=== PATIENT | male | born 1950 | race Caucasian/White ===

== ENCOUNTER 2023-10-23 00:45 | Day surgery (SDC) | payer MEDICARE, SELFPAY ==
[2023-10-05 13:22] VITALS: BMI 27.4
[2023-10-23 07:12] VITALS: BP 127/67; PULSE 70; RESP 18; TEMP 36.1; O2SAT 100; BMI 27.1
[2023-10-23] MEDS: LACTATED RINGERS 1,000 ML 150 ML IV CONT (07:23)
--- NOTE | 2023-10-23 08:01 | WPDANESEPPF ---
Anes - Initial Pre Proc Eval Procedure: Operation Date: 10/23/23 08:30 Proposed Procedures p Colonoscopy - Meño Palafox MD Date/Time: 10/23/23 08:01 Surgeon: Meño Palafox MD Pre Op Diagnosis: history of cancer Patient Data Age: 73 Gender: M Height: 1.73 m Weight: 80.9 kg Last Vital Signs Temp 97.0 F L 10/23/23 07:12 Pulse 70 10/23/23 07:12 Resp 18 10/23/23 07:12 BP 127/67 10/23/23 07:12 Pulse Ox 100 10/23/23 07:12 O2 Del Method Room Air 10/23/23 07:12 Allergies Allergy/AdvReac Type Severity Reaction Status Date / Time No Known Allergies Allergy Verified 10/23/23 07:11 Home Medications Medication Instructions Recorded Confirmed Type rosuvastatin 20 mg tablet 20 mg PO DAILY 08/02/23 10/23/23 History krill kqt-ridzm-1-dha-epa 150 1 cap PO DAILY 10/05/23 10/23/23 History mg-450 mg capsule,delayed release multivitamin 1 tablet PO DAILY 10/05/23 10/23/23 History vitamins A,C,T-saly-ojyete 2,148 1 tablet PO BID 10/05/23 10/23/23 History mcg-113 mg-45 mg-17.4 mg tablet (PreserVision AREDS) Patient hx anesthesia problems: none Family hx anesthesia problems: none Results Review: All pre-operative results and documents have been reviewed as part of the pre-operative evaluation. [facility] Surgical History Surgical History H/O rotator cuff surgery Status post bilateral hernia repair Social History Social History Smoking status: Never smoker Living arrangements: with family Spiritual care concerns: No Anes - Eval Final PreProcedure Day of Procedure 10/23/23 08:01 Patient weight: normal Heart: regular rate and rhythm Lungs: clear to auscultation Airway: Mallampati scale class 1 Neurological: alert and oriented Last oral intake: >/= 8 hours ASA classification: II Emergent: no Anesthetic plan: proceed Anesthesia type and monitoring: general GIVS and standard monitoring Results Review: All pre-operative results and documents have been reviewed as part of the pre-operative evaluation. Hyperlipidemia. Active w workouts, some cardio, no cp or sob. Informed Consent: The patient's anesthetic plan and its attendant risks and benefits were discussed with the patient/family/POA. Questions were solicited and answers provided to the satisfaction of the patient/family/POA.
--- NOTE | 2023-10-23 08:06 | PM.HPGS ---
History of Present Illness History of Present Illness Consent: Risks, benefits, and alternatives have been discussed and questions answered. Patient agrees to proceed with procedure. Chief complaint: history of cancer Narrative: Leonardo Avitia is a 73 year old male here for colonoscopy, last one 2016, mother had colon cancer Review of Systems Review of Systems: All systems reviewed & are unremarkable except as noted in HPI and below PMFSH Surgical History Surgical History H/O rotator cuff surgery Status post bilateral hernia repair Social History Social History Smoking status: Never smoker Living arrangements: with family Spiritual care concerns: No Meds Home Medications and Allergies Home Medications Medication Instructions Recorded Confirmed Type rosuvastatin 20 mg tablet 20 mg PO DAILY 08/02/23 10/23/23 History krill acw-vsxuf-7-dha-epa 150 1 cap PO DAILY 10/05/23 10/23/23 History mg-450 mg capsule,delayed release multivitamin 1 tablet PO DAILY 10/05/23 10/23/23 History vitamins A,C,V-yyju-bpwrqs 2,148 1 tablet PO BID 10/05/23 10/23/23 History mcg-113 mg-45 mg-17.4 mg tablet (PreserVision AREDS) Allergies Allergy/AdvReac Type Severity Reaction Status Date / Time No Known Allergies Allergy Verified 10/23/23 07:11 Vital Signs Vital Signs - 24 hr 10/23/23 07:12 Temperature 97.0 F L Pulse Rate 70 Respiratory Rate 18 Blood Pressure 127/67 Pulse Oximetry 100 Oxygen Delivery Room Air Exam Const: General: comfortable and no acute distress HENMT: Face/Nose/Sinus: Normal nares present Eyes: General: appearance normal, both eyes and all related structures Neck: Neck: no JVD Resp: Auscultation: clear to auscultation bilaterally Cardio: Rate: regular rate Rhythm: regular rhythm GI: Inspection: non-distended GI Palp: Yes Soft to palpation Skin: General skin exam: normal color Neuro: General: gait normal Speech: normal speech Extrem: General: normal to inspection Psych: Mental Status: mental status grossly normal Assessment and Plan Assessment and plan (1) Family hx of colon cancer: Code(s): Z80.0 - Family history of malignant neoplasm of digestive organs Status: Acute Assessment and Plan: colonoscopy
[2023-10-23 08:21] VITALS: BP 92/54; PULSE 58; RESP 21; O2SAT 97
[2023-10-23 08:31] VITALS: BP 90/66; PULSE 68; RESP 18; O2SAT 100
[2023-10-23 08:41] VITALS: BP 103/67; PULSE 70; RESP 18; O2SAT 100
== END 2023-10-23 08:51 | disposition home or self-care (01) ==
PROVIDERS: PCP Internal Medicine; Referring Provider Nurse Practitioner; Visit Provider Internal Medicine Gastroenterology
PROC: 0DJD8ZZ Inspection of Lower Intestinal Tract, Via Natural or Artificial Opening Endoscopic (ICD-10-PCS; CPT 45378; principal; 2023-10-23 08:30)
DX: Z12.11 Encounter for screening for malignant neoplasm of colon (principal); K64.8 Other hemorrhoids; K57.30 Diverticulosis of large intestine without perforation or abscess without bleeding; Z98.890 Other specified postprocedural states; Z80.0 Family history of malignant neoplasm of digestive organs
CPT/HCPCS: G0105; J2704; J7120

== ENCOUNTER 2023-11-08 14:41 | Outpatient (CLI) | payer MEDICARE, SELFPAY ==
--- NOTE | ~2023-11-08 | XR_ITS ---
[id number] Ordering provider: Tashi Elkins, History: . Cervicalgia . Comparison: None. FINDINGS: VERTEBRAL BODIES: Normal height and alignment. No visible fracture or subluxation. The dens is intact . DISK SPACES: Narrowing of the disc C4-C5, C5-C6 and C6-C7. Multilevel uncovertebral joint osteoarthri tic changes. PARASPINOUS SOFT TISSUES: No prevertebral soft tissue swelling. IMPRESSION: No acute osseous abnormality cervical spine. Multilevel degenerative disc disease. Reviewed, dictated and finalized at location A.
== END 2023-11-08 14:42 | disposition home or self-care (01) ==
LOC: MICIMG 14:44
PROVIDERS: PCP Internal Medicine; Visit Provider Internal Medicine
DX: M50.321 Other cervical disc degeneration at C4-C5 level (principal); M50.322 Other cervical disc degeneration at C5-C6 level; M50.323 Other cervical disc degeneration at C6-C7 level
CPT/HCPCS: 72040